=== PATIENT | male | born 1980 | race Caucasian/White ===

== ENCOUNTER 2024-03-26 13:23 | Emergency (ER) | payer OTHER ==
[~2024-03-26] VITALS: Ht 170.2 cm; Wt 72.6 kg
[2024-03-26 13:40] VITALS: O2SAT 99
== END 2024-03-26 14:51 | disposition left against medical advice (07) ==
LOC: ER 13:23
DX: M79.643 Pain in unspecified hand (principal); Z53.21 Procedure and treatment not carried out due to patient leaving prior to being seen by health care provider
CPT/HCPCS: A4606; A4663